=== PATIENT | female | born 1985 | race Hispanic/Latino ===

== ENCOUNTER 2020-07-04 02:24 | Emergency (ER) | payer SELFPAY ==
[2020-07-04] MEDS ORDERED: TETANUS,DIPHTHERIA,PERTUSSIS 1 EA SYG IM ONE (02:40)
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
[2020-07-04 02:45] VITALS: TEMP 97.9
[2020-07-04] MEDS ORDERED: HYDROcodone 5MG/APAP 325MG 1 EA TAB PO ONE (02:52)
[2020-07-04] MEDS ORDERED: LIDOCAINE 1% 10 ML VIAL INJ ONE ×2 (02:54→03:39)
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
[2020-07-04] MEDS ORDERED: SODIUM CHLORIDE 0.9% 1000ML 1,000 ML ONE (04:26)
[2020-07-04] MEDS ORDERED: SODIUM CHLORIDE 0.9% 1000ML 1,000 ML IVS ONE (04:28)
[2020-07-04] MEDS ORDERED: PROPOFOL 200 MG/20 ML VIAL IV ONE ×2 (04:28)
[2020-07-04] MEDS ORDERED: HYDROCOD/APAP 5/325 (ER DISP) #3 TAB PO ONE (05:32)
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
[2020-07-04 06:38] VITALS: O2SAT 96
[2020-07-04 06:42] VITALS: BP 110/69
== END 2020-07-04 06:15 | disposition home or self-care (01) ==
LOC: ER 02:24
DX: S52.532A Colles' fracture of left radius, initial encounter for closed fracture (principal); S52.615A Nondisplaced fracture of left ulna styloid process, initial encounter for closed fracture; S00.81XA Abrasion of other part of head, initial encounter; V86.59XA Driver of other special all-terrain or other off-road motor vehicle injured in nontraffic accident, initial encounter; Y92.9 Unspecified place or not applicable
CPT/HCPCS: 73100; 73110; 90471; 90715; J3490; J7030